=== PATIENT | male | born 1960 | race Caucasian/White ===

== ENCOUNTER → 2016-12-22 | Outpatient (CLI) | payer OTHER ==
[~2016-12-22] MED LIST: CONTRAST GIVEN MC PRN; FLUT1DIS IH; GLYB2.5T2 PO; IOHEXOL 300 MG/ML 100ML VIAL. IV ONE; OMEP20TA63 PO; VENTOLIN HFA18 GM IH
--- NOTE | 2016-12-22 21:59 | KCIC ---
CT scan of the chest with contrast 12/22/2016 CLINICAL HISTORY: Histoplasmosis for the last 25 years. Significant smoking history. TECHNIQUE: After the intravenous administration of 95 cc of Omnipaque 300, contiguous, 5 mm axial sections were obtained through the chest and upper abdomen. One or more of the following individualized dose reduction techniques were utilized for this study: 1. Automated exposure control. 2. Adjustment of the mA and/or kV according to patient size. 3. Use of iterative reconstruction technique. FINDINGS: Comparison is made to PA and lateral chest radiographs dated 04/23/2016. Additional comparison is made to a CT scan of the abdomen and pelvis dated 07/16/2015. The thoracic aorta is tortuous but tapers normally. The heart is normal in size. Calcified right hilar and mediastinal lymph nodes are seen which measure 5 mm to 1 cm in size in several noncalcified mediastinal lymph nodes are seen which measure 5 mm to 1.6 cm in size. They are likely reactive. A 3.2 cm rounded mass is seen involving the inferior aspect of the right lobe of the thyroid gland. This has a nonspecific CT appearance. A 8 mm low-attenuation lesion is seen superior to this which may represent a colloid cyst. Areas of probable scarring are seen involving the right upper lobe. A partially calcified curvilinear opacity is seen involving the anteromedial aspect of the right upper lobe which extends to the anterior mediastinal fat. This measures 5.7 cm in greatest diameter. It may represent an area of scarring given the patient's history of histoplasmosis; however, an underlying mass lesion is not excluded. A follow-up CT scan of the chest and 3-6 months is recommended to document stability. No acute pulmonary infiltrate is seen. No pneumothorax or pleural effusion is noted. Images through the upper abdomen demonstrate decreased attenuation of the liver parenchyma consistent with mild fatty infiltration. Low-attenuation lesions are seen involving the superior left kidney which measure 1 to 4.5 cm in size. These likely represent cysts. They are unchanged. Degenerative changes are seen involving the thoracic spine. IMPRESSION: 1. 5.7 cm curvilinear opacity is seen involving the anteromedial aspect of the right upper lobe extending to involve the anterior mediastinal fat. This is partially calcified and may represent an area of scarring given the patient's history of histoplasmosis. A underlying neoplastic process is not excluded, however. A follow-up CT scan of the chest in 3 to 6 months is recommended to document stability of this area. 2. 3.2 cm rounded low-attenuation mass is seen involving the inferior aspect of the right lobe of the thyroid gland. This has a nonspecific CT appearance. A thyroid neoplasm is not excluded. Electronically signed by: Davon Gomez MD (12/22/2016 5:44 PM)
== END | disposition home or self-care (01) ==
LOC: KCIC CT 07:45
PROVIDERS: ATTEND Family Medicine
DX: Z86.19 Personal history of other infectious and parasitic diseases (principal)
CPT/HCPCS: 71260; 82565; Q9967

== ENCOUNTER → 2017-01-03 | Outpatient (CLI) | payer OTHER ==
[~2017-01-03] MED LIST changes: -CONTRAST GIVEN MC PRN; -IOHEXOL 300 MG/ML 100ML VIAL. IV ONE
--- NOTE | 2017-01-03 15:03 | KCIC ---
Indication: Thyroid nodule. The right lobe is enlarged measuring 7.0 x 3.1 x 2.8 cm and the left lobe measures 4.6 x 1.7 x 2.2 cm. There is a complex solid mass involving the lower pole of the right lobe measuring 3.4 x 2.7 x 2.5 cm. There is internal vascularity present. There is a smaller subcentimeter nodule just cephalad to the dominant nodule measuring 0.6 x 0.7 x 0.9 cm. The left lobe is unremarkable. The isthmus is 2 mm in thickness. IMPRESSION: Large complex vascular solid mass lower pole right lobe of the thyroid. Fine-needle aspiration is recommended for further evaluation. Electronically signed by: Rob Marte MD (01/03/2017 3:00 PM) [id number]
== END | disposition home or self-care (01) ==
LOC: KCIC US 14:10
PROVIDERS: ATTEND Family Medicine
DX: E04.1 Nontoxic single thyroid nodule (principal)
CPT/HCPCS: 76536

== ENCOUNTER → 2017-01-20 | Outpatient (CLI) | payer OTHER ==
[~2017-01-20] VITALS: Ht 182.9 cm; Wt 93.4 kg
[~2017-01-20] MED LIST changes: +BREO ELLIPTA 11 EACH IH
--- NOTE | 2017-01-21 08:42 | RAD ---
ULTRASOUND-GUIDED FINE NEEDLE ASPIRATION 01/20/2017 Clinical Indication: RT THYROID NODULE Comparison: Thyroid ultrasound 01/03/2017 Technique: The risks, benefits, and alternatives of the procedure are discussed with the patient. Written informed consent is obtained. Skin site is prepped and draped in normal sterile fashion. 1% lidocaine is used for superficial and deep local anesthesia extending to the thyroid nodule. 3 separate passes were made with a 25-gauge needle. A single pass with a Rotex device into the right thyroid nodule. The patient tolerated the procedure well. There was no immediate complication. Patient remained in the department for one hour postprocedure and left in stable condition. Findings: Redemonstration of right thyroid nodule. IMPRESSION: Ultrasound guided fine needle aspiration of a right thyroid nodule.
--- NOTE | 2017-01-25 08:24 | PATHOLOGY ---
CYTOPATHOLOGY REPORT CLINICAL HISTORY: Right thyroid nodule SPECIMEN(S) RECEIVED: A.Fine needle aspiration,Right thyroid FINAL DIAGNOSIS: Fine needle aspiration, right thyroid: - [place] category: Benign - The aspirate reveals thyroid follicular cells with predominantly a macrofollicular architecture admixed with few microfollicles with few cells revealing Hurthle cell changes admixed with scant colloid and many scattered macrophages. (see comment) COMMENT: These findings are consistent with a cystic follicular lesion favor an adenomatoid nodule in multinodular hyperplasia. Suggest radiological and clinical correlation and follow-up as clinically indicated as the material aspirated may not be sales representative metals. Diagnostic features of papillary carcinoma are not seen. (SHA:mgr; 01/24/2017) PATHOLOGIST: Royer Pascual M.D. REPORT ELECTRONICALLY SIGNED BY: Royer Pascual M.D. DATE/TIME: 01/25/2017 08:23 GROSS PATHOLOGY: A. Fine needle aspiration,Right thyroid: The specimen is labeled "Gregory Delgado" and consists of two H and E slides, two fixed slides, two air dried slides. Twenty mL of clear dark red fluid in fixative from the needle rinse is also submitted and one ThinPrep slide was prepared from this material. One RNA retain vial has been received. (mm 01.21.2017) RESEARCH KENNEL SUPERVISOR(S): CARRIE Lofton([facility]) INITIAL CPT CODE(S): A; 22119 Professional services performed by [employer], [address] [place] [id number]. Technical services performed by [employer], [address] [facility] [address] [facility], [address], [place] [address]. cc: Dr Montelongo, [facility] Radiology, fax: [phone] PATIENT: GREGORY DELGADO /AGE: 107/21/1960 (Age: 56) SEX: M PATIENT #: [id number] ALT CASE #: SPECIMEN COLLECTION DATE: 01/20/2017 SPECIMEN RECEIVED DATE: 01/21/2017 [employer] [address], [address] [place] [address] PHONE: [phone] DIRECTOR: Alex Dobbins M.D. * * * END OF REPORT * * *
== END | disposition home or self-care (01) ==
LOC: US 13:54
PROVIDERS: ATTEND Surgery
DX: E04.1 Nontoxic single thyroid nodule (principal)
CPT/HCPCS: 60300; 76942

== ENCOUNTER 2017-05-17 06:32 | Inpatient (IN) | payer OTHER ==
[2017-05-17] VITALS (13 sets, daily range): BP systolic 124–161; BP diastolic 66–98
[~2017-05-17] VITALS: Ht 182.9 cm; Wt 94.8 kg
[~2017-05-17 06:32] MED LIST changes: +LISI10TA2 PO
[2017-05-17] MEDS: IV RINGERS,LACTATED 1000ML 1,000 ML IV SCH ×2 (07:00→13:49)
[2017-05-17] MEDS ORDERED: HYDROmorphone 2 MG/ML VIAL IV PRN ×3 (07:00→15:00)
[2017-05-17] MEDS ORDERED: MORPHINE SULFATE 2 MG/ML DISP.SYRIN. IV PRN ×2 (07:00→15:00)
[2017-05-17] MEDS ORDERED: ONDANSETRON PF 4 MG/2 ML VIAL. IV PRN ×3 (07:00→15:00)
[2017-05-17] MEDS ORDERED: fentaNYL PF VIAL 100 MCG/2 ML VIAL IV PRN ×2 (07:00→15:00)
[2017-05-17] MEDS ORDERED: PROCHLORPERAZINE 10 MG/2 ML VIAL. IV PRN ×2 (07:00→15:00)
[2017-05-17] MEDS ORDERED: LIDOCAINE 1% PF 2 ML VIAL. ID PRN ×2 (07:00→15:00)
[2017-05-17 07:28] LABS: BASO # 0.1 x10^3/uL (0.0-0.2); BASO % 1 % (0-3); EOS % 5 % (0-3); HEMATOCRIT 46.5 % (39.0-53.0); HEMOGLOBIN 15.2 g/dL (13.0-17.5); LYMPH # 4.5 x10^3/uL (1.0-4.8); LYMPH % 39 % (24-48); MEAN CORPUSCULAR HEMOGLOBIN 30 pg (25-35); MEAN CORPUSCULAR HGB CONC 33 g/dL (31-37); MEAN CORPUSCULAR VOLUME 92 fL (79-100); MONO % 9 % (0-9); NEUT % 46 % (31-73); PLATELET COUNT 247 x10^3/uL (140-400); RED BLOOD COUNT 5.04 x10^6/uL (4.30-5.70); RED CELL DISTRIBUTION WIDTH 13.9 % (11.5-14.5); WHITE BLOOD COUNT 11.6 x10^3/uL (4.0-11.0)
[2017-05-17] MEDS ORDERED: BUPIVAC MPF-EPI 0.5%-1:200000 30 ML VIAL. ONE (07:29)
[2017-05-17] MEDS ORDERED: ROCURONIUM 50 MG/5 ML VIAL. ONE (07:30)
[2017-05-17] MEDS ORDERED: fentaNYL PF VIAL 250 MCG/5 ML VIAL ONE (07:31)
[2017-05-17 07:33] LABS: ALBUMIN 4.1 g/dL (3.4-5.0); CALCIUM 8.7 mg/dL (8.5-10.1); CREATININE 0.9 mg/dL (0.7-1.3); GFR 86.7
[2017-05-17] MEDS ORDERED: SUCCINYLCHOLINE 200 MG/10 ML VIAL. ONE ×2 (07:39→13:27)
[2017-05-17] MEDS ORDERED: REMIFENTANIL 1 MG VIAL. IV ONE (08:08)
[2017-05-17] MEDS ORDERED: GLYCOPYRROLATE 1 MG/5 ML VIAL. ONE (09:41)
[2017-05-17] MEDS ORDERED: NEOSTIGMINE 10 MG/10 ML VIAL. ONE (09:41)
--- NOTE | 2017-05-17 10:29 | PDOC ---
BRIEF OPERATIVE NOTE Date: May 17, 2017 Pre-Op Diagnosis thyroid nodule Post-Op Diagnosis same Procedure Performed total thyroidectomy Surgeon Kamran Social Work Case Manager Dr Mina Anesthesia Type: General (with NIMS) Blood Loss 50cc IV Fluid 1100cc Urine Output 100cc Specimens Obtained right lobe and isthmus with suture at upper pole left lobe with suture at upper pole Findings complex nodule right lower lobe Complications none KAILEY JAUREGUI MD May 17, 2017 10:29
[2017-05-17] MEDS ORDERED: oxyCODONE IR 5 MG TABLET PO PRN (10:30)
[2017-05-17] MEDS ORDERED: diphenhydrAMINE 50 MG/ML VIAL IV PRN (10:30)
[2017-05-17] MEDS ORDERED: 0.9 % SODIUM CHLORIDE 10 ML DISP.SYRIN. IV PRN (10:30)
[2017-05-17] MEDS ORDERED: diphenhydrAMINE HCL 25 MG CAPSULE PO PRN (10:30)
[2017-05-17] MEDS: fentaNYL PF VIAL 100 MCG/2 ML VIAL IV PRN ×6 (10:47→21:17)
[2017-05-17] MEDS ORDERED: PROPOFOL 20 ML IV ONE (13:26)
[2017-05-17] MEDS ORDERED: fentaNYL PF VIAL 100 MCG/2 ML VIAL ONE (13:26)
--- NOTE | 2017-05-17 13:31 | PDOC ---
Provider Note Provider Note Gregory has active bleeding from his drain he is awake and alert BP 146/86 will explore his wound KAILEY JAUREGUI MD May 17, 2017 13:31
[2017-05-17] MEDS ORDERED: SURGICEL FIBRILLAR 1X2 EACH. ONE (13:58)
[2017-05-17] MEDS ORDERED: SURGICEL FIBRILLAR 1X2 EACH. TP ONE (14:00)
[2017-05-17] MEDS ORDERED: ceFAZolin 2GM PREMIX 2 GM/50 ML BAG IV ONE (14:00)
[2017-05-17] MEDS ORDERED: PHENYLEPHRINE in 0.9% NACL PF 1 MG/10 ML DISP.SYRIN. IV ONE (14:08)
[2017-05-17] MEDS ORDERED: SEVOFLURANE 31 TO 60 MINUTES. IH ONE (14:23)
[2017-05-17] MEDS ORDERED: LABETALOL 20 MG/4 ML DISP.SYRIN. ONE (14:36)
[2017-05-17] MEDS: LABETALOL 20 MG/4 ML DISP.SYRIN. IVP PRN ×2 (14:38→15:59)
[2017-05-17] MEDS ORDERED: hydrALAZINE 20 MG/ML VIAL. ONE (14:54)
[2017-05-17] MEDS ORDERED: IV RINGERS,LACTATED 1000ML 1,000 ML IV SCH (14:57)
[2017-05-17] MEDS: hydrALAZINE 20 MG/ML VIAL. IVP PRN ×2 (15:01→15:38)
[2017-05-17 15:18] LABS: HEMATOCRIT 43.6 % (39.0-53.0); HEMOGLOBIN 14.3 g/dL (13.0-17.5); RED BLOOD COUNT 4.78 x10^6/uL (4.30-5.70); RED CELL DISTRIBUTION WIDTH 14.2 % (11.5-14.5); WHITE BLOOD COUNT 20.6 x10^3/uL (4.0-11.0)
--- NOTE | 2017-05-17 15:53 | PDOC ---
BRIEF OPERATIVE NOTE Date: May 17, 2017 Pre-Op Diagnosis post op bleeding Post-Op Diagnosis same Procedure Performed wound exploration with ligation of bleeders Surgeon Kamran Ref[employer]ated National Truck Driver Matilde Field SHOP REPAIRER Anesthesia Type: General Blood Loss 300cc IV Fluid 1000cc Specimens Obtained none Findings oozing from muscle Complications none KAILEY JAUREGUI MD May 17, 2017 15:53
[2017-05-17] MEDS: BENZOCAINE/MENTHOL LOZENGE. PO PRN ×2 (15:57→17:27)
[2017-05-17] MEDS ORDERED: hydrALAZINE 20 MG/ML VIAL. IVP PRN (16:00)
[2017-05-17] MEDS ORDERED: NON FORMULARY ITEM (Albuterol Sulfate (Ventolin Hfa Inhaler) 2 PUFF) IH SCH (16:45)
[2017-05-17] MEDS ORDERED: ALBUTEROL SULFATE 2.5 MG/3 ML NEBU. NEB PRN (16:45)
[2017-05-17] MEDS: ALBUTEROL SULFATE 2.5 MG/3 ML NEBU. NEB SCH ×2 (17:00→20:25)
--- NOTE | 2017-05-17 17:03 | OP ---
DATE OF SURGERY: 05/17/2017 PREOPERATIVE DIAGNOSIS: Postoperative bleeding. POSTOPERATIVE DIAGNOSIS: Postoperative bleeding. PROCEDURE: Wound exploration with ligation of bleeder. SURGEON: Itz Jauregui MD. MAILROOM CLERK: Matilde Field CFA. ANESTHESIA: General endotracheal. ESTIMATED BLOOD LOSS: 300 mL. INTRAVENOUS FLUIDS: 1 liter. INDICATIONS: The patient is a 56-year-old who earlier today underwent a total thyroidectomy. He was having active bleeding from the drain left at surgery and is brought for exploration. OPERATIVE FINDINGS: A single vessel on the right side of the neck was bleeding and this was ligated. Some oozing from the strap muscles was controlled with stick tie of 3-0 Vicryl. OPERATIVE REPORT: The patient brought to the operating suite, given a general endotracheal anesthetic and the neck prepped and draped in usual sterile fashion. The Prolene suture used to close the wound was removed. The chromic sutures in the subcutaneous tissue divided. Cervical fascia opened by cutting the 3-0 chromic sutures and the neck was packed on each side with sponges. Left side was approached first. Some oozing from muscle was controlled with 3-0 Vicryl stick ties. It was irrigated, evacuated and checked for adequate hemostasis, which appeared to be present. We then inspected the right side and again found the source of bleeding from a small vessel, which was ligated with a 3-0 Vicryl ligature. It was irrigated, evacuated and checked for hemostasis and again appeared to be present. Anesthesia gave the patient a Valsalva up to 30 cm of water without evidence of active bleeding. Some fibrillar was placed along each side of the trachea to augment hemostasis. Again, no active bleeding was seen. The [place] drain was cut in a Y configuration and laid on each side of the trachea brought out the midpoint of the wound and sewn to the skin with a silk stitch. Cervical fascia was closed with interrupted inverted 3-0 chromic. Hemostasis appeared present. Subcutaneous tissue approximated with interrupted 3-0 chromic. Skin closed loosely with a subcuticular 4-0 Prolene. Steri-Strips and sterile dressing applied. The patient was awakened from his anesthetic and taken to the recovery room in satisfactory condition. ITZ JAUREGUI MD DR: TANIA/benigno JOB#: [id number] / [id number] ARSH Vasquez MD
[2017-05-17] MEDS: POTASSIUM CL 20MEQ-0.45% NACL 1,000 ML IV SCH (17:28)
--- NOTE | 2017-05-17 17:57 | OP ---
DATE OF SURGERY: 05/17/2017 PREOPERATIVE DIAGNOSIS: Thyroid nodule. POSTOPERATIVE DIAGNOSIS: Thyroid nodule. PROCEDURE: Total thyroidectomy. SURGEON: Itz Jauregui MD MUSICAL INSTRUMENT MAKER: Dr. Mina. ANESTHESIA: General endotracheal with NIMS. ESTIMATED BLOOD LOSS: 50 mL. INTRAVENOUS FLUIDS: 1100. URINE OUTPUT: 100. INDICATIONS: The patient is a 56-year-old with a single nodule on the right lobe, here for removal. DESCRIPTION OF PROCEDURE: The patient was brought to the operating suite, given a general endotracheal anesthetic with NIMS. Mariscal catheter placed to dependent drainage and the neck was placed in extension and prepped and draped in usual sterile fashion. A 0.5% Marcaine with epinephrine was infiltrated along the incision line. Incision was made and dissection carried down to the cervical fascia. Skin flaps were developed superiorly and inferiorly with cautery dissection. The cervical fascia was opened in the midline and the strap muscles were reflected off the right lobe of the gland. The superior pole vessels were isolated, ligated, and divided and the thyroid was swept toward the midline by taking down lateral attachments with careful cautery dissection or ligation with Vicryl ties as needed. The nodule in the lower pole was delivered up toward the midline along with the remainder of the right side of the gland. Eventually, we mobilized to the midline and removed it along with the isthmus and it was sent to pathology. Care was taken during the dissection to avoid the recurrent laryngeal nerve and preserve parathyroid tissue. While awaiting pathologic evaluation, we turned our attention to the left lobe. Again, the strap muscles were reflected laterally. The superior pole vessels were ligated, divided and the gland swept toward the midline, taking down lateral attachments, again avoiding the recurrent laryngeal nerve and preserving parathyroid tissue. Lobe was passed off. Intraoperative report from pathology was indeterminate. The wound was checked for adequate hemostasis. The patient was given a Valsalva up to 30 cm water with no bleeding seen. A Jose Martin drain was cut in a Y configuration and the arms were laid on each side of the trachea and the drain brought out the middle of the wound. This was secured to the skin with silk stitch. When a correct sponge count was obtained, the cervical fascia was closed in the midline with interrupted inverted 3-0 chromic. Neck taken out of extension and the subcutaneous tissue approximated with interrupted 3-0 chromic. Skin closed with a subcuticular 4-0 Prolene. Steri-Strips and sterile dressing applied. The patient was awakened from his anesthetic after having his Mariscal catheter removed. He was taken to the postop area in stable condition and was in good voice after he awoke in the recovery room. ITZ JAUREGUI MD DR: TANIA/benigno JOB#: [id number] / [id number] David Nunez
[2017-05-17] MEDS: BUDESONIDE 0.5 MG/2 ML NEBU. NEB SCH (20:24)
[2017-05-17 20:53] LABS: HEMOGLOBIN 14.3 g/dL (13.0-17.5); RED BLOOD COUNT 4.73 x10^6/uL (4.30-5.70); RED CELL DISTRIBUTION WIDTH 13.8 % (11.5-14.5); WHITE BLOOD COUNT 18.5 x10^3/uL (4.0-11.0)
[2017-05-17 21:05] LABS: INR 1.1 (0.8-1.1); PROTHROMBIN TIME PATIENT 13.4 SEC (11.7-14.0)
[2017-05-17] MEDS: DOCUSATE SODIUM 100 MG CAPSULE. PO SCH (21:16)
[2017-05-17] MEDS: oxyCODONE/APAP 5/325 1 TAB TABLET PO PRN (21:16)
[2017-05-17] MEDS: ENOXAPARIN 40 MG/0.4 ML SYRINGE. SQ SCH (22:08)
[2017-05-18] VITALS (14 sets, daily range): BP systolic 104–152; BP diastolic 55–86
[2017-05-18] MEDS: POTASSIUM CL 20MEQ-0.45% NACL 1,000 ML IV SCH ×2 (03:11→08:00)
[2017-05-18] MEDS: ALBUTEROL SULFATE 2.5 MG/3 ML NEBU. NEB SCH ×4 (07:28→19:12)
[2017-05-18] MEDS: BUDESONIDE 0.5 MG/2 ML NEBU. NEB SCH ×2 (07:28→19:11)
--- NOTE | 2017-05-18 08:22 | PDOC ---
Provider Note Provider Note [id number] ARSH MARTINEZ MD May 18, 2017 08:22
[2017-05-18] MEDS: oxyCODONE/APAP 5/325 1 TAB TABLET PO PRN ×4 (08:46→21:26)
[2017-05-18] MEDS: DOCUSATE SODIUM 100 MG CAPSULE. PO SCH ×2 (08:46→20:39)
[2017-05-18] MEDS: glyBURIDE 5 MG TABLET PO SCH (08:46)
[2017-05-18] MEDS: LISINOPRIL 10 MG TABLET PO SCH (08:47)
[2017-05-18] MEDS ORDERED: NON FORMULARY ITEM (Fluticasone/Vilanterol (Breo Ellipta 100-25 Mcg Inh) 1 PUFF) IH SCH (09:00)
--- NOTE | 2017-05-18 09:45 | PDOC ---
SURGICAL PROGRESS NOTE Subjective up to chair no new complaints voiding well voice a little husky adequate pain control Vital Signs Vital Signs Date Time Temp Pulse Resp B/P (MAP) Pulse Ox O2 Delivery O2 Flow Rate FiO2 05/18/17 09:00 109 18 123/84 (97) 95 Room Air 05/18/17 04:00 99.6 99.6 05/17/17 14:33 10 I&O Intake and Output 05/18/17 06:59 Intake Total 4880 ml Output Total 3450 ml Balance 1430 ml Intake Oral 640 ml IV Total 4240 ml Output Urine Total 3100 ml Estimated Blood Loss 350 ml PATIENT HAS A GOLD: No General: Alert, Oriented X3, Cooperative, No acute distress HEENT: Other (some serosanguineous drainage on dressing, closure intact) Labs Laboratory Tests Test 05/17/17 07:10 05/17/17 10:20 05/17/17 11:46 05/17/17 15:10 White Blood Count 11.6 x10^3/uL (4.0-11.0) 20.6 x10^3/uL (4.0-11.0) Red Blood Count 5.04 x10^6/uL (4.30-5.70) 4.78 x10^6/uL (4.30-5.70) Hemoglobin 15.2 g/dL (13.0-17.5) 14.3 g/dL (13.0-17.5) Hematocrit 46.5 % (39.0-53.0) 43.6 % (39.0-53.0) Mean Corpuscular Volume 92 fL (79-100) 91 fL (79-100) Mean Corpuscular Hemoglobin 30 pg (25-35) 30 pg (25-35) Mean Corpuscular Hemoglobin Concent 33 g/dL (31-37) 33 g/dL (31-37) Red Cell Distribution Width 13.9 % (11.5-14.5) 14.2 % (11.5-14.5) Platelet Count 247 x10^3/uL (140-400) 238 x10^3/uL (140-400) Neutrophils (%) (Auto) 46 % (31-73) Lymphocytes (%) (Auto) 39 % (24-48) Monocytes (%) (Auto) 9 % (0-9) Eosinophils (%) (Auto) 5 % (0-3) Basophils (%) (Auto) 1 % (0-3) Neutrophils # (Auto) 5.3 x10^3uL (1.8-7.7) Lymphocytes # (Auto) 4.5 x10^3/uL (1.0-4.8) Monocytes # (Auto) 1.0 x10^3/uL (0.0-1.1) Eosinophils # (Auto) 0.5 x10^3/uL (0.0-0.7) Basophils # (Auto) 0.1 x10^3/uL (0.0-0.2) Sodium Level 139 mmol/L (136-145) Potassium Level 4.0 mmol/L (3.5-5.1) Chloride Level 106 mmol/L (98-107) Carbon Dioxide Level 25 mmol/L (21-32) Anion Gap 8 (6-14) Blood Urea Nitrogen 23 mg/dL (8-26) Creatinine 0.9 mg/dL (0.7-1.3) Estimated GFR (Cockcroft-Gault) 86.7 Glucose Level 106 mg/dL (70-99) Calcium Level 8.7 mg/dL (8.5-10.1) 8.2 mg/dL (8.5-10.1) Albumin 4.1 g/dL (3.4-5.0) Glucose (Fingerstick) 126 mg/dL (70-99) 167 mg/dL (70-99) Test 05/17/17 20:45 White Blood Count 18.5 x10^3/uL (4.0-11.0) Red Blood Count 4.73 x10^6/uL (4.30-5.70) Hemoglobin 14.3 g/dL (13.0-17.5) Hematocrit 43.0 % (39.0-53.0) Mean Corpuscular Volume 91 fL (79-100) Mean Corpuscular Hemoglobin 30 pg (25-35) Mean Corpuscular Hemoglobin Concent 33 g/dL (31-37) Red Cell Distribution Width 13.8 % (11.5-14.5) Platelet Count 261 x10^3/uL (140-400) Prothrombin Time 13.4 SEC (11.7-14.0) Prothromb Time International Ratio 1.1 (0.8-1.1) Calcium Level 8.4 mg/dL (8.5-10.1) Laboratory Tests Test 05/17/17 10:20 05/17/17 11:46 05/17/17 15:10 05/17/17 20:45 Glucose (Fingerstick) 126 mg/dL (70-99) 167 mg/dL (70-99) White Blood Count 20.6 x10^3/uL (4.0-11.0) 18.5 x10^3/uL (4.0-11.0) Red Blood Count 4.78 x10^6/uL (4.30-5.70) 4.73 x10^6/uL (4.30-5.70) Hemoglobin 14.3 g/dL (13.0-17.5) 14.3 g/dL (13.0-17.5) Hematocrit 43.6 % (39.0-53.0) 43.0 % (39.0-53.0) Mean Corpuscular Volume 91 fL (79-100) 91 fL (79-100) Mean Corpuscular Hemoglobin 30 pg (25-35) 30 pg (25-35) Mean Corpuscular Hemoglobin Concent 33 g/dL (31-37) 33 g/dL (31-37) Red Cell Distribution Width 14.2 % (11.5-14.5) 13.8 % (11.5-14.5) Platelet Count 238 x10^3/uL (140-400) 261 x10^3/uL (140-400) Calcium Level 8.2 mg/dL (8.5-10.1) 8.4 mg/dL (8.5-10.1) Prothrombin Time 13.4 SEC (11.7-14.0) Prothromb Time International Ratio 1.1 (0.8-1.1) Assessment/Plan s/p total thyroidectomy to floor advance diet decrease IV fluids Problems: KAILEY JAUREGUI MD May 18, 2017 09:45
--- NOTE | 2017-05-18 12:14 | CONS ---
DATE OF CONSULTATION: DATE OF SERVICE: 05/18/2017. CHIEF COMPLAINT: Postoperative hypertension. HISTORY OF PRESENT ILLNESS: A 56-year-old white male who has mild hypertension and diabetes. He takes glimepiride 2 mg and was started on lisinopril 1 week ago for hypertension. He had a total thyroidectomy yesterday for complex thyroid mass and had some postoperative bleeding that required reexploration and has done well since that time. ALLERGIES: SULFA. MEDICATIONS: Lisinopril and glimepiride otherwise unremarkable. SOCIAL HISTORY: [place]. Nonsmoker, nondrinker. FAMILY HISTORY: Unremarkable. REVIEW OF SYSTEMS: No other complaints. OBJECTIVE: ENT: All within normal limits. NECK: He had a large dressing in place. No bruits or nodes or masses. LUNGS: Clear. CARDIOVASCULAR: Regular rate. No irregular beat or murmur. ABDOMEN: Soft, benign, nontender. EXTREMITIES: Excellent pedal and radial pulses. NEUROLOGIC: Physiologic. ASSESSMENT: Hypertension and diabetes control, doing well postoperative thyroidectomy. PLAN: We will follow. ARSH MARTINEZ MD DR: RONY/benigno JOB#: [id number] / [id number]
[2017-05-18] MEDS: BENZOCAINE/MENTHOL LOZENGE. PO PRN ×2 (12:33→15:51)
[2017-05-18] MEDS: ENOXAPARIN 40 MG/0.4 ML SYRINGE. SQ SCH (20:40)
[2017-05-19] MEDS: POTASSIUM CL 20MEQ-0.45% NACL 1,000 ML IV SCH (01:52)
[2017-05-19 03:00] VITALS: BP 153/88
[2017-05-19] MEDS: oxyCODONE/APAP 5/325 1 TAB TABLET PO PRN ×2 (03:45→10:12)
[2017-05-19 07:59] VITALS: BP 141/71
[2017-05-19] MEDS: ALBUTEROL SULFATE 2.5 MG/3 ML NEBU. NEB SCH (08:03)
[2017-05-19] MEDS: BUDESONIDE 0.5 MG/2 ML NEBU. NEB SCH (08:03)
[2017-05-19] MEDS: glyBURIDE 5 MG TABLET PO SCH (08:12)
[2017-05-19] MEDS: DOCUSATE SODIUM 100 MG CAPSULE. PO SCH (08:13)
[2017-05-19 08:15] VITALS: BP 141/71
[2017-05-19] MEDS: LISINOPRIL 10 MG TABLET PO SCH (08:15)
--- NOTE | 2017-05-19 08:37 | DISCH ---
DISCHARGE INSTRUCTIONS Condition on Discharge Condition on Discharge: Stable Activity After Discharge Activity Instructions for Disc: Avoid exertion Diet after Discharge Diet after Discharge: Regular Wound Incision Care Other wound/incision instructi: May shower Contacting the after DC Call your doctor for: If your condition worsens Follow-Up Follow up with: Dr Andrew in 2 weeks STANLEY WOLFE MD May 19, 2017 08:37
--- NOTE | 2017-05-19 08:41 | PDOC3 ---
Discharge Summary [facility] Date of Admission: May 18, 2017 Discharge Date: May 19, 2017 Admitting Diagnosis Thyroid mass Problems: Final Diagnosis Same CONSULTS None Procedures Total thyroidectomy Brief Hospital Course Mr. Delgado is a 56 old male admitted to undergo total thyroidectomy. Had to return to OR for bleeding which was controlled. He has done well postop. Drain removed and discharged home in good condition. Problems: CONDITION AT DISCHARGE: Stable Diet Regular Scheduled Albuterol Sulfate (Ventolin Hfa Inhaler), 2 PUFF IH PRN Q4-6HRS, (Reported) Fluticasone/Vilanterol (Breo Ellipta 100-25 Mcg Inh), 1 PUFF IH DAILY, (Reported ) Glyburide (Glyburide), 1 TAB PO DAILY, (Reported) Lisinopril (Lisinopril), 1 TAB PO DAILY, (Reported) Discontinued Medications Omeprazole Magnesium (Prilosec Otc), 1 TAB PO DAILY, (Reported) Follow Up Dr Andrew Patient Instructions no strenous activity for 2 weeks STANLEY WOLFE MD May 19, 2017 08:41
--- NOTE | 2017-05-19 10:27 | PDOC ---
Provider Note Provider Note bp good, glu good, home same meds, fu as scheduled ARSH MARTINEZ MD May 19, 2017 10:27
[2017-05-19] MEDS: BENZOCAINE/MENTHOL LOZENGE. PO PRN (10:57)
--- NOTE | 2017-05-20 14:56 | PATHOLOGY ---
PATHOLOGY REPORT * * * * * * * * FINAL DIAGNOSIS: A. Thyroid lobe and isthmus, right thyroid lobectomy and isthmussectomy: - Adenomatous nodule of lower pole of lobe, measuring 3.2 cm in greatest dimension, showing degenerative changes with focal calcification. - Small colloid nodule of lobe. - Focal capsular fibrosis and granulomatous inflammatory reaction. - No parathyroid glands identified. B. Thyroid lobe, left thyroid lobectomy: - Small colloid nodule of lower pole. - No parathyroid glands identified. COMMENT: There is no evidence of malignancy. (JPM:rlm; 05/20/2017) REPORT ELECTRONICALLY SIGNED BY: Reg Horne M.D. DATE/TIME: 05/20/2017 14:56 * * * * * * * * GROSS PATHOLOGY: A. The specimen is received fresh for intraoperative consultation, and is designated "right hemithyroid and isthmus, suture at upper pole". This consists of a lobe of purple-brown thyroid tissue and attached isthmus. The specimen weighs 22 grams. There is a suture attached to the upper pole of the right lobe. The right lobe measures up to 7.5 x 3.5 x 1.5 cm in greatest dimension. There is an apparent soft nodule within the lower pole of the thyroid lobe which measures up to 3.2 cm in greatest dimension. The capsular surface is focally roughened. The margins are inked. On sectioning, the nodule appears thinly encapsulated and has a ma-brown soft cut surface. The capsular surface is focally slightly thickened and yellowish. The remainder of the right thyroid lobe has a reddish, purple meaty appearance. A advertising sales representative portion of the thyroid nodule is submitted for frozen section as FSA1. The tissue remaining from frozen section is submitted for permanent sections as A1. The remainder of the thyroid nodule is submitted as A2-A7. Multiple advertising sales representative sections from the remaining thyroid lobe are submitted as A8-A12. (JPM:pit/benedict; 05/17/2017) B. The specimen is received in formalin, labeled "Gregory Delgado and left thyroid lobe stitch at upper pole", is an 11 g, purple-brown lobe of thyroid tissue measuring 5.0 x 2.5 x 1.5 cm with a suture attached to upper pole. The capsular surface is intact and inked as follows anterior blue, posterior black. Specimen serially sectioned from superior to inferior to show a well-circumscribed ma-brown nodule in the lower pole 0.9 x 0.6 x 0.5 cm. The remaining parenchyma is dark brown beefy red. Supervisor Cell Efficiency sections submitted in B1-B5 (B5 contains nodule) (SWS; 05/18/2017) FROZEN SECTION DIAGNOSIS: Thyroid lobe, right hemithyroid and isthmus: - Encapsulated follicular nodule - definitive diagnosis deferred to permanent sections. The results are reported to Dr. Andrew in the operating room. (JPM:[facility]; 05/17/2017) Frozen section performed by [place] [address] INITIAL CPT CODE(S): A; 85820, 30386 B; 32794 Professional services performed [place] [address] Technical services performed by [facility] at [address] [place] [address]. SPECIMEN(S) RECEIVED: A.Right hemithryoid and isthmus B.Left thyroid lobe CLINICAL HISTORY: Right thyroid nodule PATIENT: GREGORY DELGADO /AGE: 107/21/1960 (Age: 56) PATIENT #: [id number] ALT CASE #: SPECIMEN COLLECTION DATE: 05/17/2017 SPECIMEN RECEIVED DATE: 05/17/2017 [facility] - [address] [place] [address] - PHONE: [phone] * * * END OF REPORT * * *
--- NOTE | 2017-05-23 13:01 | PDOC1 ---
History and Physical Date of Admission Date of Admission DATE: 05/17/17 TIME: 07:30 Identification/Chief Complaint Chief Complaint right thyroid nodule Problems: Source Source: Patient History of Present Illness History of Present Illness Gregory is a 56-year-old gentleman with a 3 cm dominant nodule on the inferior aspect right lobe of his thyroid. He is here for resection Past Medical History Pulmonary: Asthma, Other (histoplasmosis) Endocrine: Diabetes Past Surgical History Past Surgical History: Other (left humeral fracture) Family History Family History: Cancer, Other (his mother has had a total thyroidectomy) Social History Smoke: <1 pack per day ALCOHOL: occassional Current Medications Current Medications Current Medications Ondansetron HCl (Zofran) 4 mg PRN Q6HRS PRN IV NAUSEA/VOMITING; Start at 07:00; Stop 05/18/17 at 06:59; Status DC Fentanyl Citrate (Fentanyl 2ml Vial) 25 mcg PRN Q5MIN PRN IV MILD PAIN; Start 05/17/17 at 07:00; Stop 05/18/17 at 06:59; Status DC Fentanyl Citrate (Fentanyl 2ml Vial) 50 mcg PRN Q5MIN PRN IV MODERATE PAIN Last administered on 05/17/17t 11:03; Start 05/17/17 at 07:00; Stop 05/18/17 at 06:59; Status DC Morphine Sulfate 1 mg PRN Q10MIN PRN IV SEVERE PAIN; Start 05/17/17 at 07:00; Stop 05/18/17 at 06:59; Status DC Ringer's Solution 1,000 ml @ 30 mls/hr Q24H IV Last administered on t 13:49; Start 05/17/17 at 07:00; Stop 05/17/17 at 18:59; Status DC Lidocaine HCl (Xylocaine-Mpf 1% Vial) 2 ml PRN 1X PRN ID IV START; Start 05/17 at 07:00; Stop 05/18/17 at 06:59; Status DC Hydromorphone HCl (Dilaudid) 0.5 mg PRN Q10MIN PRN IV SEV PAIN, Second choice; Start 05/17/17 at 07:00; Stop 05/18/17 at 06:59; Status DC Prochlorperazine Edisylate (Compazine) 5 mg PACU PRN PRN IV NAUSEA, MRX1; Start 05/17/17 at 07:00; Stop 05/18/17 at 06:59; Status DC Cefazolin Sodium/ Dextrose 50 ml @ 100 mls/hr 1X PREOP PRN IV PRIOR TO PROCEDURE Last administered on 05/17/17t 07:55; Start 05/17/17 at 06:00; Stop 05/17/17 at 18:00; Status DC Bupivacaine HCl/ Epinephrine Bitart (Sensorcain-Mpf Epi 0.5%-1:[id number]) 30 ml STK -MED ONCE .ROUTE Last administered on 05/17/17t 08:15; Start 05/17/17 at 07: 29; Stop 05/17/17 at 07:30; Status DC Rocuronium Leupp (Zemuron) 50 mg STK-MED ONCE .ROUTE ; Start 05/17/17 at 07: 30; Stop 05/17/17 at 07:31; Status DC Fentanyl Citrate (Fentanyl 5ml Vial) 250 mcg STK-MED ONCE .ROUTE ; Start at 07:31; Stop 05/17/17 at 07:32; Status DC Succinylcholine Chloride (Anectine) 200 mg STK-MED ONCE .ROUTE ; Start at 07:39; Stop 05/17/17 at 07:40; Status DC Remifentanil HCl (Ultiva) 1 mg STK-MED ONCE IV ; Start 05/17/17 at 08:08; Stop 05/17/17 at 08:09; Status DC Ephedrine Sulfate (Akovaz) 50 mg STK-MED ONCE .ROUTE ; Start 05/17/17 at 08:17 ; Stop 05/17/17 at 08:18; Status DC Neostigmine Methylsulfate (Bloxiverz) 10 mg STK-MED ONCE .ROUTE ; Start at 09:41; Stop 05/17/17 at 09:42; Status DC Glycopyrrolate (Robinul) 1 mg STK-MED ONCE .ROUTE ; Start 05/17/17 at 09:41; Stop 05/17/17 at 09:42; Status DC Diphenhydramine HCl (Benadryl) 25 mg PRN Q6HRS PRN PO ITCHING; Start 05/17/17 at 10:30; Stop 05/19/17 at 11:57; Status DC Diphenhydramine HCl (Benadryl) 25 mg PRN Q6HRS PRN IV ITCHING; Start 05/17/17 at 10:30; Stop 05/19/17 at 11:57; Status DC Enoxaparin Sodium (Lovenox 40mg Syringe) 40 mg Q24H SQ Last administered on 20:40; Start 05/17/17 at 22:00; Stop 05/19/17 at 11:57; Status DC Sodium Chloride (Normal Saline Flush) 3 ml QSHIFT PRN IV AFTER MEDS AND BLOOD DRAWS; Start 05/17/17 at 10:30; Stop 05/19/17 at 11:57; Status DC Potassium Chloride/Sodium Chloride 1,000 ml @ 50 mls/hr Q20H IV Last administered on 05/18/17 03:11; Start 05/17/17 at 12:00; Stop 05/19/17 at 11 :57; Status DC Oxycodone/ Acetaminophen (Percocet 5/325) 1 tab PRN Q4HRS PRN PO MILD PAIN, 1ST CHOICE Last administered on 05/19/17 10:12; Start 05/17/17 at 10:30; Stop 05/19/17 at 11:57; Status DC Oxycodone HCl (Roxicodone) 10 mg PRN Q4HRS PRN PO MODERATE PAIN, SEVERE PAIN Last administered on 05/18/17 03:12; Start 05/17/17 at 10:30; Stop 05/19/17 at 11:57; Status DC Hydromorphone HCl (Dilaudid) 1 mg Q3HRS PRN IV PAIN; Start 05/17/17 at 10:30; Stop 05/19/17 at 11:57; Status DC Docusate Sodium (Colace) 100 mg BID PO Last administered on 05/19/17 08:13; Start 05/17/17 at 21:00; Stop 05/19/17 at 11:57; Status DC Ondansetron HCl (Zofran) 4 mg PRN Q6HRS PRN IV NAUESA, 1ST CHOICE; Start 05/17 at 10:30; Stop 05/19/17 at 11:57; Status DC Cellulose 1 each STK-MED ONCE TP Last administered on 05/17/17 14:00; Start 05/17/17 at 14:00; Stop 05/17/17 at 14:02; Status DC Labetalol HCl (Normodyne) 10 mg PACU PRN PRN IVP ELEVATED BP, SEE COMMENTS Last administered on 05/17/17 15:59; Start 05/17/17 at 15:00; Stop 05/19/17 at 11:57; Status DC Hydralazine HCl (Apresoline Inj) 10 mg PRN Q4HRS PRN IVP ELEVATED BP, SEE COMMENTS Last administered on 05/17/17 15:38; Start 05/17/17 at 15:00; Stop 05/19/17 at 11:57; Status DC Ondansetron HCl (Zofran) 4 mg PRN Q6HRS PRN IV NAUSEA/VOMITING; Start at 15:00; Stop 05/18/17 at 14:59; Status DC Fentanyl Citrate (Fentanyl 2ml Vial) 25 mcg PRN Q5MIN PRN IV MILD PAIN; Start 05/17/17 at 15:00; Stop 05/18/17 at 14:59; Status DC Fentanyl Citrate (Fentanyl 2ml Vial) 50 mcg PRN Q5MIN PRN IV MODERATE PAIN Last administered on 05/17/17 21:17; Start 05/17/17 at 15:00; Stop 05/18/17 at 14:59; Status DC Morphine Sulfate 1 mg PRN Q10MIN PRN IV SEVERE PAIN; Start 05/17/17 at 15:00; Stop 05/18/17 at 14:59; Status DC Ringer's Solution 1,000 ml @ 30 mls/hr Q24H IV Last administered on 15:10; Start 05/17/17 at 14:57; Stop 05/18/17 at 02:56; Status DC Lidocaine HCl (Xylocaine-Mpf 1% Vial) 2 ml PRN 1X PRN ID PRIOR TO IV START; Start 05/17/17 at 15:00; Stop 05/18/17 at 14:59; Status DC Hydromorphone HCl (Dilaudid) 0.5 mg PRN Q10MIN PRN IV SEV PAIN, Second choice; Start 05/17/17 at 15:00; Stop 05/18/17 at 14:59; Status DC Prochlorperazine Edisylate (Compazine) 5 mg PACU PRN PRN IV NAUSEA, MRX1; Start 05/17/17 at 15:00; Stop 05/18/17 at 14:59; Status DC Throat Lozenges (Cepacol Sore Throat Lozenge) 1 nicol PRN Q2HRS PRN PO SORE THROAT Last administered on 05/19/17 10:57; Start 05/17/17 at 15:45; Stop at 11:57; Status DC Hydralazine HCl (Apresoline Inj) 10 mg Q6HRS PRN IVP ELEVATED BP, SEE COMMENTS ; Start 05/17/17 at 16:00; Stop 05/19/17 at 11:57; Status DC Lisinopril (Prinivil) 10 mg DAILY PO Last administered on 05/19/17 08:15; Start 05/18/17 at 09:00; Stop 05/19/17 at 11:57; Status DC Non-Formulary Medication 2 puff PRN Q4-6HRS IH ; Start 05/17/17 at 16:45; Status UNV Non-Formulary Medication 1 puff DAILY IH ; Start 05/18/17 at 09:00; Status UNV Glyburide (Diabeta) 2.5 mg DAILYWBKFT PO Last administered on 05/19/17 08:12 ; Start 05/18/17 at 08:00; Stop 05/19/17 at 11:57; Status DC Albuterol Sulfate (Ventolin Neb Soln) 2.5 mg PRN Q4HRS PRN NEB SHORTNESS OF BREATH; Start 05/17/17 at 16:45; Stop 05/19/17 at 11:57; Status DC Albuterol Sulfate (Ventolin Neb Soln) 2.5 mg QID NEB Last administered on 05/19 08:03; Start 05/17/17 at 17:00; Stop 05/19/17 at 11:57; Status DC Budesonide (Pulmicort) 0.5 mg BID NEB Last administered on 05/19/17 08:03; Start 05/17/17 at 21:00; Stop 05/19/17 at 11:57; Status DC Cefazolin Sodium/ Dextrose (Ancef 2gm Premix) 2 gm STK-MED ONCE IV ; Start at 14:00; Stop 05/18/17 at 08:33; Status DC Propofol 20 ml @ As Directed STK-MED ONCE IV ; Start 05/17/17 at 13:26; Stop 05/23/17 at 10:43; Status DC Fentanyl Citrate (Fentanyl 2ml Vial) 100 mcg STK-MED ONCE .ROUTE ; Start at 13:26; Stop 05/23/17 at 10:43; Status DC Succinylcholine Chloride (Anectine) 200 mg STK-MED ONCE .ROUTE ; Start at 13:27; Stop 05/23/17 at 10:43; Status DC Cellulose 1 each STK-MED ONCE .ROUTE ; Start 05/17/17 at 13:58; Stop 05/23/17 at 10:44; Status DC Phenylephrine HCl 1 mg STK-MED ONCE IV ; Start 05/17/17 at 14:08; Stop at 10:44; Status DC Sevoflurane (Ultane) 30 ml STK-MED ONCE IH ; Start 05/17/17 at 14:23; Stop at 10:44; Status DC Labetalol HCl (Normodyne) 20 mg STK-MED ONCE .ROUTE ; Start 05/17/17 at 14:36; Stop 05/23/17 at 10:44; Status DC Hydralazine HCl (Apresoline Inj) 20 mg STK-MED ONCE .ROUTE ; Start 05/17/17 at 14:54; Stop 05/23/17 at 10:45; Status DC Active Scripts Active Reported Lisinopril 10 Mg Tablet 1 Tab PO DAILY Breo Ellipta 100-25 Mcg Inh (Fluticasone/Vilanterol) 1 Each Aer.pow.ba 1 Puff IH DAILY Ventolin Hfa Inhaler (Albuterol Sulfate) 18 Gm Hfa.aer.ad 2 Puff IH PRN Q4-6HRS Glyburide 2.5 Mg Tablet 1 Tab PO DAILY Allergies Allergies: Coded Allergies: Sulfa (Sulfonamide Antibiotics) (Verified Allergy, Intermediate, 05/17/17) ROS Review of System Denies weight loss, chills, fevers, night sweats Physical Exam General: Alert, Oriented X3, Cooperative, No acute distress HEENT: Atraumatic, Other (neck is supple with a suggestion fullness right lower ) Lungs: Normal air movement Heart: RRR Abdomen: Soft, No tenderness Extremities: No clubbing Skin: No rashes Psych/Mental Status: Mood NL Vitals Vitals Vital Signs Date Time Temp Pulse Resp B/P (MAP) Pulse Ox O2 Delivery O2 Flow Rate FiO2 05/19/17 10:12 94 Room Air 05/19/17 08:15 96 141/71 05/19/17 07:59 89.9 18 89.9 05/17/17 14:33 10 VTE Prophylaxis Ordered VTE Prophylaxis Devices: Yes VTE Pharmacological Prophylaxi: No Assessment/Plan Assessment/Plan Right thyroid nodule Removal Explained risks including but not limited to bleeding, infection, injury to the recurrent laryngeal nerves with temporary or permanent hoarseness, possible disruption of the parathyroid function requiring calcium supplementation postoperatively. He understands and will proceed KAILEY JAUREGUI MD May 23, 2017 13:01
== END 2017-05-19 11:00 | disposition home or self-care (01) | DRG 627 ==
LOC: SURG 06:32 → 4 NORTH 11:00 → 1 WEST ICU 18:09 → 4 NORTH 05-18 11:15
PROVIDERS: ADMIT Surgery; ATTEND Surgery
PROC: 0W360ZZ Control Bleeding in Neck, Open Approach (ICD-10-PCS; 2017-05-17)
PROC: 0GTK0ZZ Resection of Thyroid Gland, Open Approach (ICD-10-PCS; principal; 2017-05-17 08:00)
DX: E04.1 Nontoxic single thyroid nodule (principal); E11.9 Type 2 diabetes mellitus without complications; I10 Essential (primary) hypertension; Z28.21 Immunization not carried out because of patient refusal; R58 Hemorrhage, not elsewhere classified; Z79.84 Long term (current) use of oral hypoglycemic drugs
CPT/HCPCS: 36415; 80048; 82040; 82310; 82962; 85025; 85027; 85610; 86850; 86900; 86901; 88307; 88331; 94250; 94640; 94760; C1769; J0330; J0360; J0690; J1650; J2370; J2704; J2710; J3010; J3490; J7120; J7613; J7626

== ENCOUNTER → 2018-04-27 | Outpatient (CLI) | payer OTHER ==
--- NOTE | 2018-04-28 08:50 | KCIC ---
CT LOW DOSE LUNG SCREENING Indication: Cancer screening, smoker of 20-30 years, history of histoplasmosis Technique: Noncontrast CT imaging was performed of the chest using low-dose protocol, multiplanar reconstruction images submitted. One or more of the following individualized dose reduction techniques were utilized for this examination: 1. Automated exposure control 2. Adjustment of the mA and/or kV according to patient size 3. Use of iterative reconstruction technique. Comparison: December 22, 2016 and March 11, 2006 Findings: There is persistent abnormal right upper lobe density, somewhat oblong morphology greatest dimension about 3.8 cm x 1.2 cm in axial oblique dimensions. This was present dating back to 2006 exam although some interval filling in of previously seen dilated airspace in this region presumably due to dilated bronchus, internal density more suggestive of component of fluid. There are also associated calcifications in this region developed since 2006 exam, largest focus of calcification about 0.9 cm, probably in segment of dilated bronchiectasis. There is another more proximal 0.6 cm calcification also apparently in the bronchus. This is also adjacent to somewhat nodular appearing density along the mediastinal border which measures about 1.7 cm AP by 2.1 cm transverse by 2 cm cc as seen on axial images 24 which measures very slightly larger, previously about 1.7 cm AP by 1.8 cm transverse. This is again near the anterior border of the ascending thoracic aorta. There is no new suspicious pulmonary nodularity. There is no pleural effusion or pneumothorax. There are calcified right hilar as well as mediastinal nodes as seen previously. Thoracic aortic caliber is within normal limits. No new noncalcified mediastinal lymphadenopathy is identified. IMPRESSION: 1. There is again abnormal right upper lobe density with associated broncholiths and what likely represents a component of fluid within the dilated bronchus. There is adjacent nodularity of the right mediastinal border anterior to the ascending thoracic aorta which is very slightly larger than older 2006 exam. However given other findings, findings are more likely due to granulomatous disease. Continued low-dose CT lung surveillance is advised in 12 months, lung RADS category 2. Electronically signed by: Ben Pinzon MD (04/28/2018 8:47 AM) [id number]
== END | disposition home or self-care (01) ==
LOC: KCIC CT 15:27
PROVIDERS: ATTEND Family Medicine
DX: Z12.2 Encounter for screening for malignant neoplasm of respiratory organs (principal); Z87.891 Personal history of nicotine dependence; Z86.19 Personal history of other infectious and parasitic diseases
CPT/HCPCS: G0297